=== PATIENT | female | born 1985 | race Caucasian/White ===

== ENCOUNTER 2016-11-03 15:04 | Emergency (ER) | payer OTHER ==
[2016-11-03 15:18] VITALS: BP 127/78
[2016-11-03] MEDS ORDERED: Ibuprofen TAB* 600 MG PO ONE (15:25)
--- NOTE | 2016-11-03 15:30 | UC ---
Lower Extremity/Ankle HPI - HPI Summary HPI Summary: 31 yo female with worsening right foot pain x 3 weeks pain with wt bearing now with pain at rest right foot swollen past few days on her feet all day relief with motrin - History of Current Complaint Chief Complaint: UCLowerExtremity Stated Complaint: RIGHT FOOT PAIN Time Seen by Provider: 11/03/16 15:19 Hx Obtained From: Patient Hx Last Menstrual Period: 10/08/16 Onset/Duration: Sudden Onset, Lasting Weeks - 3 Severity Initially: Mild Severity Currently: Moderate Pain Intensity: 6 Pain Scale Used: 0-10 Numeric Aggravating Factor(s): Standing, Ambulation Alleviating Factor(s): Rest Able to Bear Weight: Yes - Allergies/Home Medications Allergies/Adverse Reactions: Allergies Allergy/AdvReac Type Severity Reaction Status Date / Time No Known Allergies Allergy Verified 11/03/16 15:13 Home Medications: Home Medications Norgestimate-Eth Estradiol(NF) [Ortho Tri-Cyclen (NF)] 1 tab PO DAILY 11/03/16 [ History Confirmed 11/03/16] PMH/Surg Hx/FS Hx/Imm Hx Previously Healthy: Yes - Surgical History Surgical History: None - Family History Known Family History: Positive: Unknown Family History: Patient is adopted - Social History Alcohol Use: Rare Substance Use Type: None Smoking Status (MU): Current Some Day Smoker Amount Used/How Often: when drinking - Immunization History Most Recent Influenza Vaccination: Not the Season Review of Systems Constitutional: Negative Skin: Negative Eyes: Negative ENT: Negative Respiratory: Negative Cardiovascular: Negative Gastrointestinal: Negative Genitourinary: Negative Motor: Negative Neurovascular: Negative Musculoskeletal: Arthralgia Neurological: Negative Psychological: Negative Is Patient Immunocompromised?: No All Other Systems Reviewed And Are Negative: Yes Physical Exam Triage Information Reviewed: Yes Appearance: Well-Appearing, No Pain Distress, Well-Nourished Vital Signs: Initial Vital Signs Temp 100 F 11/03/16 15:11 Pulse 112 11/03/16 15:11 Resp 16 11/03/16 15:11 BP 127/78 11/03/16 15:11 Pulse Ox 100 11/03/16 15:11 Eyes: Positive: Conjunctiva Clear ENT: Positive: Hearing grossly normal Neck: Positive: Supple, Nontender Respiratory: Positive: Lungs clear, Normal breath sounds, No respiratory distress Cardiovascular: Positive: RRR, No Murmur Musculoskeletal: Positive: Edema @ - dorsum of right foot, Other: - tender 2- 5th MTPs Neurological: Positive: Alert Psychological Exam: Normal Skin Exam: Normal Lower Extremity Course/Dx - Differential Dx/Diagnosis Provider Diagnoses: right foot pain. ? overuse injury/vs stress fx vs other Discharge - Discharge Plan Condition: Stable Disposition: HOME Patient Education Materials: Arthralgia (ED) Referrals: Narciso Campbell MD [Medical Doctor] - As Soon As Possible Additional Instructions: ibuprofen 200mg 3 tablets 3-4 x day with food CAM boot ice twice daily this needs follow up-could be stress fracture despite negative XR
--- NOTE | 2016-11-03 15:58 | RAD ---
INDICATION: Right forefoot pain. TECHNIQUE: 3 views of the right foot were obtained. FINDINGS: There is diffuse soft tissue swelling. The bones are in normal alignment. No fracture is seen. 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 IMPRESSION: SOFT TISSUE SWELLING, NO FRACTURE IS SEEN. IF THE PATIENT'S SYMPTOMS PERSIST RECOMMEND FOLLOW-UP IMAGING.
== END 2016-11-03 16:20 | disposition home or self-care (01) ==
LOC: UCCORT 15:04
DX: M79.671 Pain in right foot (principal); Z72.0 Tobacco use
CPT/HCPCS: 99203; A9270-GY; G0463